=== PATIENT | female | born 1990 | race Hispanic/Latino ===

== ENCOUNTER 2024-06-22 12:36 | Emergency (ER) | payer OTHER ==
[~2024-06-22] VITALS: Ht 162.6 cm; Wt 61.0 kg
[~2024-06-22 12:36] MED LIST: ACCUPRIL5 MG PO; BENTYL20 MG PO; BUTALBITAL/ACETAMIN1 PO; CIPRO500 MG PO; COLACE100 MG OR; CRANBERRY1 TA1 OR; DENIES CURRENT MEDS; FLOXIN OTIC0.3 % AS; IRON325 MG PO; LOVENOX 4040 MG/0.4 SC; MACRODANTIN100 MG OR; MOTRIN600 MG/TAB PO; MULTIVITAMIN OR; OXYCODONE30 MG OR; PNV PO; PRENATAL1 TAB OR; TYLENOL500 MG OR; ULTRAM50 M1 PO; ZPAK PO
[2024-06-22 12:42] VITALS: BP 134/83
[2024-06-22] MEDS ORDERED: IBUPROFEN 200 MG/TAB PO ONE (12:55)
[2024-06-22 13:30] VITALS: BP 134/83
== END 2024-06-22 13:31 | disposition home or self-care (01) ==
LOC: ED 12:36
DX: J02.9 Acute pharyngitis, unspecified (principal); Z88.0 Allergy status to penicillin; Z20.822 Contact with and (suspected) exposure to COVID-19